=== PATIENT | female | born 2000 | race Hispanic/Latino ===

== ENCOUNTER → 2023-09-06 07:02 | Outpatient (CLI) | payer OTHER, SELFPAY ==
--- NOTE | 2023-09-06 07:04 | DI.MRI.S_ITS ---
PROCEDURE: MR LUMBAR SPINE WO CON INDICATIONS: LUMBAR RADICULOPATHY TECHNIQUE: Noncontrast sagittal T1 spin echo and T2 fast echo, sagittal STIR, and T2 fast spin echo through the lumbar spine. In cases with scoliosis, additional coronal T2 fast spin echo may be performed. COMPARISON: [facility] [place], CR, XR LUMBAR SPINE WITH OBLIQUES PLUS FLEXION EXTENSION, 08/26/2023, 15:59. FINDINGS: Image quality: Excellent. Alignment and Curvature: [id number] rotatory levoscoliosis centered at L2. Bone Marrow: Marrow is of normal overall signal. No acute vertebral body compression fractures. Spinal Cord: Conus medullaris terminates at the L1-L2 level. Visualized cord demonstrates normal signal and size. Paraspinous Soft Tissues: No paravertebral masses. T12-L1: Normal appearance. L1-L2: Normal appearance. L2-L3: Normal appearance. L3-L4: Normal appearance. L4-L5: Facet hypertrophy. Minimal disc bulge. No canal stenosis or foraminal stenosis. L5-S1: Facet hypertrophy. Minimal disc bulge. No canal stenosis or foraminal stenosis. IMPRESSION: 1. Mild to moderate rotatory levoscoliosis centered at L2. 2. Lower lumbar facet arthropathy. 3. No canal stenosis or foraminal stenosis. Dictated by: Myles Ballesteros M.D. on 09/06/2023 at 8:36 Approved by: Myles Ballesteros M.D. on 09/06/2023 at 8:40
== END ==
LOC: MRI 07:03
PROVIDERS: Referring Provider Physical Medicine & Rehabilitation Pain Medicine; Visit Provider Physical Medicine & Rehabilitation Pain Medicine
DX: M47.26 Other spondylosis with radiculopathy, lumbar region (principal); M47.27 Other spondylosis with radiculopathy, lumbosacral region; M41.9 Scoliosis, unspecified
CPT/HCPCS: 72148